=== PATIENT | female | born 1985 | race Caucasian/White ===

== ENCOUNTER 2017-04-02 20:22 | Inpatient (IN) | payer BC ==
[~2017-04-02] VITALS: Ht 167.6 cm; Wt 93.0 kg
[2017-04-02] MEDS: LACTATED RINGER'S 1000 ML INJ 1,000 ML IV SCH (20:46)
[2017-04-02] MEDS ORDERED: Prenatal Vitamin PO (20:57)
[2017-04-02] MEDS ORDERED: SODIUM CHLORIDE 0.9% FLUSH 10 ML FLUSH IV FLUSH PRN ×2 (21:45)
[2017-04-02] MEDS ORDERED: DINOPROSTONE 10 MG INSERT-LEAVE FOR 12 HOURS VAGINAL ONE (21:45)
[2017-04-02] MEDS ORDERED: NS 1000 ML OTHER PRN (21:45)
[2017-04-02] MEDS ORDERED: OXYTOCIN 30 UNITS 500ML PREMIX IV ONE (21:45)
[2017-04-02] MEDS ORDERED: LIDOCAINE HCL 1% 50 ML VIAL INFIL PRN (21:45)
[2017-04-02] MEDS ORDERED: ONDANSETRON HCL 4 MG/2 ML VIAL IV PUSH PRN (21:45)
[2017-04-02] MEDS ORDERED: NS 1000 ML IV PRN (21:45)
[2017-04-02] MEDS ORDERED: LIDOCAINE HCL 1% 50 ML VIAL I-DERMAL PRN (21:45)
[2017-04-02] MEDS ORDERED: MINERAL OIL 10 ML VIAL TOPICAL PRN (21:45)
[2017-04-02] MEDS ORDERED: LACTATED RINGER'S 1000 ML BOLUS IV PRN (21:45)
[2017-04-02] MEDS ORDERED: CITRIC ACID-SODIUM CITRATE LIQ 30 ML UDC PO SCH (21:45)
[2017-04-02] MEDS ORDERED: NS 500 ML BOLUS IV PRN (21:45)
[2017-04-02] MEDS ORDERED: ACETAMINOPHEN 325 MG TAB PO PRN (22:00)
[2017-04-02] MEDS ORDERED: PENICILLIN G POT 5,000,000 UNITS/NS 100 ML (Mini-Bag Plus) IV ONE ×2 (22:00)
[2017-04-02] MEDS ORDERED: ZOLPIDEM TARTRATE 5 MG TAB PO PRN (22:00)
[2017-04-02 22:02] LABS: AUTOMATED NEUTROPHIL # 9.3 TH/MM3 (1.8-7.7); BASOPHIL % 0.3 % (0.0-2.0); EOSINOPHIL % 0.3 % (0.0-4.0); HEMATOCRIT 34.2 % (35.0-46.0); HEMOGLOBIN 11.5 GM/DL (11.6-15.3); LYMPH % 15.4 % (9.0-44.0); LYMPHOCYTE # 1.8 TH/MM3 (1.0-4.8); MEAN CELL VOLUME 85.4 FL (80.0-100.0); MEAN CORPUSCULAR HEMOGLOBIN 28.7 PG (27.0-34.0); MEAN CORPUSCULAR HGB CONC 33.6 % (32.0-36.0); MEAN PLATELET VOLUME 8.3 FL (7.0-11.0); MONO % 6.6 % (0.0-8.0); MONOCYTE # 0.8 TH/MM3 (0-0.9); NEUT % 77.4 % (16.0-70.0); PLATELET COUNT 288 TH/MM3 (150-450); RED BLOOD COUNT 4.01 MIL/MM3 (4.00-5.30); RED CELL DISTRIBUTION WIDTH 13.5 % (11.6-17.2)
[2017-04-02 22:21] LABS: AMORPHOUS SEDIMENT, URINE RARE; BACTERIA, URINE FEW /hpf; BILIRUBIN, URINE NEG (NEG); BLOOD, URINE NEG (NEG); GLUCOSE,URINE NEG (NEG); KETONE, URINE 10 mg/dL (NEG); MUCUS URINE FEW /lpf (OCC); NITRITE,URINE NEG (NEG); PH, URINE 6.5 (5.0-8.5); SQUAMOUS EPITHELIAL CELL URINE 1 /hpf (0-5); URINE COLOR YELLOW (YELLW/STRAW); URINE LEUKOCYTE ESTERASE MOD (NEG)
[2017-04-03] VITALS (20 sets, daily range): BP systolic 108–147; BP diastolic 57–92; PULSE 81–103; RESP 17–18; TEMP 97.3–98.9
[2017-04-03] MEDS: PENICILLIN G POT 2,500,000 UNITS/NS 100 ML IV SCH ×4 (02:00→06:00)
--- NOTE | 2017-04-03 08:40 | HHI.HP ---
HPI Chief Complaint Induction of labor Date Seen: Apr 03, 2017 Time Seen: 08:30 Travel History International Travel<30 Days: No Contact w/Intl Traveler<30Days: No Known Affected Area: No History of Present Illness HPI 41 + SIUP, for IOL, GBS positive Weeks Gestation: 41 Para: 0 : 1 Last Menstrual Period: Jun 19, 2016 Miscarriage: 0 : 0 History Past Medical History Medical History: Denies Significant Hx Obstetric History Obstetric History GBS +. 1 hour glucola 123 Past Surgical History Surgical History: No Previous Surgery Family History Family History: Negative Social History Alcohol Use: No Tobacco Use: No Substance Abuse: No Allergies-Medications (Allergen,Severity, Reaction): Coded Allergies: No Known Allergies (Verified Allergy, Unknown, 04/02/17) Home Meds Reported Medications [ Vitamin] No Conflict Check, 1 TAB PO DAILY 04/02/17 Physical Exam Vital Signs Date Time Temp Pulse Resp B/P (MAP) Pulse Ox O2 Delivery O2 Flow Rate FiO2 04/03/17 07:12 98.2 18 04/03/17 07:05 88 118/76 (90) 04/03/17 04:13 97.7 88 17 132/83 (99) 04/03/17 00:05 98.0 18 04/03/17 00:04 94 133/76 (95) Narrative GENERAL: Well-nourished, well-developed patient. SKIN: Warm and dry. HEAD: Normocephalic and atraumatic. EYES: No scleral icterus. No injection or drainage. ENT: No nasal drainage noted. Mucous membranes pink. Airway patent. NECK: Supple, trachea midline. No JVD. CARDIOVASCULAR: Regular rate and rhythm without murmurs, gallops, or rubs. RESPIRATORY: Breath sounds equal bilaterally. No accessory muscle use. BREASTS: Bilateral exam showed no masses , no retractions, no nipple discharge. ABDOMEN/GI: Abdomen soft, non-tender, bowel sounds present, no rebound, no guarding Gravid to [-] weeks size Fundal Height: [-] GENITOURINARY: External Genitalia: intact and normal in appearance BUS glands: [-] Cervix: posterior Dilatation:1 Effacement: 50 Station: -3 Presentation: vtx Membranes: [intact Uterine Contractions: n/a FHT's: Category: 1 EXTREMITIES: No cyanosis or edema. BACK: Nontender without obvious deformity. No CVA tenderness. NEUROLOGICAL: Awake and alert. Motor and sensory grossly within normal limits. Five out of 5 muscle strength in all muscle groups. Normal speech. Caprini VTE Risk Assessment Caprini VTE Risk Assessment: No/Low Risk (score <= 1) Caprini Risk Assessment Model Point Value = 1 Point Value = 2 Point Value = 3 Point Value = 5 Age 41-60 Minor surgery BMI > 25 kg/m2 Swollen legs Varicose veins or History of unexplained or recurrent spontaneous Oral contraceptives or hormone replacement Sepsis (< 1 month) Serious lung disease, including pneumonia (< 1 month) Abnormal pulmonary function Acute myocardial infarction Congestive heart failure (< 1 month) History of inflammatory bowel disease Medical patient at bed rest Age 61-74 Arthroscopic surgery Major open surgery (> 45 min) Laparoscopic surgery (> 45 min) Malignancy Confined to bed (> 72 hours) Immobilizing plaster cast Central venous access Age >= 75 History of VTE Family history of VTE Factor V Leiden Prothrombin [id number] Lupus anticoagulant Anticardiolipin antibodies Elevated serum homocysteine Heparin-induced thrombocytopenia Other congenital or acquired thrombophilia Stroke (< 1 month) Elective arthroplasty Hip, pelvis, or leg fracture Acute spinal cord injury (< 1 month) Prophylaxis Regimen Total Risk Factor Score Risk Level Prophylaxis Regimen 0-1 Low Early ambulation 2 Moderate Order ONE of the following: *Sequential Compression Device (SCD) *Heparin 5000 units SQ BID 3-4 Higher Order ONE of the following medications: *Heparin 5000 units SQ TID *Enoxaparin/Lovenox 40 mg SQ daily (WT < 150 kg, CrCl > 30 mL/min) *Enoxaparin/Lovenox 30 mg SQ daily (WT < 150 kg, CrCl > 10-29 mL/min) *Enoxaparin/Lovenox 30 mg SQ BID (WT < 150 kg, CrCl > 30 mL/min) AND/OR *Sequential Compression Device (SCD) 5 or more Highest Order ONE of the following medications: *Heparin 5000 units SQ TID (Preferred with Epidurals) *Enoxaparin/Lovenox 40 mg SQ daily (WT < 150 kg, CrCl > 30 mL/min) *Enoxaparin/Lovenox 30 mg SQ daily (WT < 150 kg, CrCl > 10-29 mL/min) *Enoxaparin/Lovenox 30 mg SQ BID (WT < 150 kg, CrCl > 30 mL/min) AND *Sequential Compression Device (SCD) Data Data Vital Signs Reviewed: Yes Orders Orders Admit To Inpatient (04/02/17 ) Diet Liquid (04/03/17 Breakfast) Activity Oob Ad Delma (04/02/17 21:22) Activity Oob Ad Delma (04/02/17 21:22) ^ Labor Induction (04/02/17 21:22) ^ Vaginal Insert (04/02/17:) ^ Vaginal Lavage (04/02/17 21:22) Heart (04/02/17 21:22) Admit To Inpatient (04/02/17 ) Vital Signs (Adult) .Per protocol (04/02/17 21:24) Activity Oob Ad Delma (04/02/17 21:24) Heart (04/02/17 21:24) Amnioinfusion (04/02/17 21:24) Urinary Catheter Management .ONCE (04/02/17 21:24) Complete Blood Count With Diff (04/02/17 21:24) Hold Clot (04/02/17 21:24) Abo/Rh Blood Type (04/02/17 21:24) Urinalysis - C+S If Indicated (04/02/17 21:24) Drug Screen, Random Urine (04/02/17 21:24) Resp Oxygen Non Rebreathe Mask (04/02/17 ) ^ Epidural / Intrathecal Infus (04/02/17 21:24) Dinoprostone Vag Insert (Cervidil Vag In (04/02/17 21:45) Lactated Ringer's 1000 Ml Inj (Lr 1000 M (04/03/17 08:00) Sodium Chloride 0.9% Flush (Ns Flush) (04/02/17 21:45) Sodium Chloride 0.9% Flush (Ns Flush) (04/02/17 21:45) Sodium Chlor 0.9% 1000 Ml Inj (Ns 1000 M (04/02/17 21:45) Lactated Ringer's 1000 Ml Inj (Lr 1000 M (04/02/17 21:45) Sodium Chlorid 0.9% 500 Ml Inj (Ns 500 M (04/02/17 21:45) Sodium Chlor 0.9% 1000 Ml Inj (Ns 1000 M (04/02/17 21:45) Lidocaine 1% Inj (50 Ml) (Xylocaine 1% I (04/02/17 21:45) Citric Acid-Sodium Citrate Liq (Bicitra (04/02/17 21:45) Ondansetron Inj (Zofran Inj) (04/02/17 21:45) Fentanyl Inj (Fentanyl Inj) (04/02/17 21:45) Fentanyl Inj (Fentanyl Inj) (04/02/17 21:45) Penicillin G Potassium Inj (Pfizerpen-G (04/02/17 22:00) Penicillin G Potassium Inj (Pfizerpen-G (04/03/17 02:00) Oxytocin 30 Units-500ml Premix (Pitocin (04/02/17 21:45) Lidocaine 1% Inj (50 Ml) (Xylocaine 1% I (04/02/17 21:45) Light Mineral Oil (Muri-Lube Oil) (04/02/17 21:45) Acetaminophen (Tylenol) (04/02/17 22:00) Zolpidem (Ambien) (04/02/17 22:00) Labs Laboratory Tests Test 04/02/17 20:34 04/02/17 20:48 Urine Color YELLOW Urine Turbidity CLEAR Urine pH 6.5 Urine Specific [place] 1.018 Urine Protein TRACE Urine Glucose (UA) NEG Urine Ketones 10 Urine Occult Blood NEG Urine Nitrite NEG Urine Bilirubin NEG Urine Urobilinogen LESS THAN 2.0 Urine Leukocyte Esterase MOD Urine RBC 3 Urine WBC 1 Urine Squamous Epithelial Cells 1 Urine Amorphous Sediment RARE Urine Bacteria FEW Urine Mucus FEW Microscopic Urinalysis Comment CULT NOT INDICATED Urine Opiates Screen NEG Urine Barbiturates Screen NEG Urine Amphetamines Screen NEG Urine Benzodiazepines Screen NEG Urine Cocaine Screen NEG Urine Cannabinoids Screen NEG White Blood Count 12.0 Red Blood Count 4.01 Hemoglobin 11.5 Hematocrit 34.2 Mean Corpuscular Volume 85.4 Mean Corpuscular Hemoglobin 28.7 Mean Corpuscular Hemoglobin Concent 33.6 Red Cell Distribution Width 13.5 Platelet Count 288 Mean Platelet Volume 8.3 Neutrophils (%) (Auto) 77.4 Lymphocytes (%) (Auto) 15.4 Monocytes (%) (Auto) 6.6 Eosinophils (%) (Auto) 0.3 Basophils (%) (Auto) 0.3 Neutrophils # (Auto) 9.3 Lymphocytes # (Auto) 1.8 Monocytes # (Auto) 0.8 Eosinophils # (Auto) 0.0 Basophils # (Auto) 0.0 CBC Comment DIFF FINAL Differential Comment Assessment/Plan Assessment and Plan 41+ SIUP, postdates IOL, Cat. 1 FHT, GBS positive, discussed plan of management, will remove cervidil at 10am, then shower,eat ? cytotec OR pit. Patient is aware of possible serial induction. Kale Hanley MD Apr 03, 2017 08:40
[2017-04-03] MEDS ORDERED: OXYTOCIN 30 UNITS/NS 500ML PREMIX IV PRN (11:00)
--- NOTE | 2017-04-03 16:52 | HHI.PR ---
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
--- NOTE | 2017-04-03 17:12 | PD.LABORPN ---
Subjective Subjective Patient tolerated IV pitocin well, no significant cervical change Objective Vital Signs Vital Signs Date Time Temp Pulse Resp B/P (MAP) Pulse Ox O2 Delivery O2 Flow Rate FiO2 04/03/17 12:12 93 128/81 (97) 04/03/17 11:22 98.0 18 04/03/17 11:20 98 129/85 (100) Objective Pelvic Exam: Cervix: post. Dilatation: 1+ Effacement: 60 Station: -2 Presentation: vtx Membranes: [intact Uterine Contractions: mild FHT's: Category: 1 Decels: none Weeks Gestation: 41 Assessment/Plan Assessment and Plan 41 week ,IOL,reassuring FHT; discussed turning off pitocin, resting/eating dinner and use cytotec 25 mcg. Kale Hanley MD Apr 03, 2017 17:12
[2017-04-03] MEDS ORDERED: MISOPROSTOL 100 MCG TAB VAGINAL ONE (17:15)
[2017-04-03] MEDS ORDERED: PILL SPLITTER OTHER PRN (17:15)
[2017-04-03] MEDS: LACTATED RINGER'S 1000 ML INJ 1,000 ML IV SCH (18:31)
[2017-04-03] MEDS ORDERED: MISOPROSTOL 25 MCG TAB VAGINAL ONE ×2 (19:00→23:15)
[2017-04-04] VITALS (33 sets, daily range): BP systolic 115–140; BP diastolic 65–89; PULSE 72–98; RESP 16–18; TEMP 98.3–99.1; O2SAT 100
--- NOTE | 2017-04-04 08:25 | HHI.PR ---
RECORD PRODUCER Note Note S: Doing well, no complaints, denies headache, epigastric pain or right upper quadrant pain, contractions are mild. No loss of fluid O: Fetus: FHTs: 140s, moderate variability, accelerations present no decelerations Exam: 3/50/-2/medium/anterior A/P: 31 yo G1 at 41w2d for IOL based on GA 1. IUP: cat 1 tracing - cephalic, GBS neg, EFW 7.5lbs - post placenta 2. IOL: s/p cervidil x1, pit yesterday without change, held overnight, status post PV miso 2, most recent at 2300, cervix favorable Xiao score of 7 this morning, begin Pitocin, 3. Elevated blood pressure: Mostly normotensive, 1-2 mildly elevated blood pressures, will continue to monitor, will not collect HELLP labs at this time Austin Moreland MD Apr 04, 2017 08:25
[2017-04-04] MEDS ORDERED: OXYTOCIN 30 UNITS-500ML PREMIX 500 ML IV PRN (08:30)
[2017-04-04] MEDS: LACTATED RINGER'S 1000 ML INJ 1,000 ML IV SCH ×2 (09:56→20:16)
[2017-04-04] MEDS ORDERED: PENICILLIN G POT 5,000,000 UNITS/NS 100 ML(Mini-Bag Plus) IV ONE ×2 (11:00)
--- NOTE | 2017-04-04 13:03 | HHI.PR ---
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 IUP: cat 1 tracing - cephalic, GBS neg, EFW 7.5lbs - post placenta 2. IOL: s/p cervidil x1, pit yesterday without change, held overnight, status post PV miso 2, cervix favorable w/ BS of 7 this AM, continue pit, recheck this afternoon, pt desires to hold on AROM until then (around 4-5pm) 3. Elevated blood pressure: Mostly normotensive, 1-2 mildly elevated blood pressures, will continue to monitor, will not collect HELLP labs at this time Austin Moreland MD Apr 04, 2017 13:03
[2017-04-04] MEDS: PENICILLIN G POT 2,500,000 UNITS/NS 100 ML IV SCH ×6 (15:54→23:00)
--- NOTE | 2017-04-04 17:26 | HHI.PR ---
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 IUP: cat 1 tracing - cephalic, GBS neg, EFW 7.5lbs - post placenta 2. IOL: s/p cervidil x1, pit yesterday without change, held overnight, status post PV miso 2, cervix favorable w/ BS of 7 this AM, continue pit, s/p AROM this check (1645) clear fluid, discussed indications for failed induction of labor, allow 12-18 hours of Pitocin now status post rupture. 3. Elevated blood pressure: isolated and resolved, pt asymptomatic. Continue routine vitals. Austin Moreland MD Apr 04, 2017 17:26
[2017-04-04] MEDS ORDERED: fentaNYL 2MCG-BUPIV 0.125% INJ 100 ML ONE (22:24)
[2017-04-04] MEDS ORDERED: NO SYSTEM NARCOTICS PRN (23:00)
[2017-04-04] MEDS ORDERED: DO NOT ADMINISTER ANTICOAGULANTS PRN (23:00)
[2017-04-04] MEDS ORDERED: ePHEDrine/NS 25 MG/5 ML SYRINGE IV PUSH PRN (23:00)
[2017-04-04] MEDS ORDERED: fentaNYL 2MCG-BUPIV 0.125% 100 ML EPIDURAL SCH (23:00)
[2017-04-05] VITALS (39 sets, daily range): BP systolic 95–136; BP diastolic 50–81; PULSE 59–111; RESP 14–20; TEMP 97.5–100.6; O2SAT 96–100
[2017-04-05] MEDS: PENICILLIN G POT 2,500,000 UNITS/NS 100 ML IV SCH ×6 (03:56→11:00)
[2017-04-05] MEDS: LACTATED RINGER'S 1000 ML INJ 1,000 ML IV SCH ×3 (03:56→18:09)
--- NOTE | 2017-04-05 08:43 | PD.LABORPN ---
Subjective Subjective pt pushing since 6 am, on pitocin 20 mu Objective Vital Signs Vital Signs Date Time Temp Pulse Resp B/P (MAP) Pulse Ox O2 Delivery O2 Flow Rate FiO2 04/05/17 08:13 100.3 04/05/17 08:13 18 04/05/17 08:00 84 122/66 (84) 04/05/17 07:30 96 117/81 (93) 04/05/17 07:05 18 04/05/17 07:00 122/71 (88) 04/05/17 07:00 92 04/05/17 06:30 97 131/77 (95) 04/05/17 06:28 100.6 20 04/05/17 06:00 90 04/05/17 06:00 136/77 (96) 04/05/17 05:31 118/77 (91) 04/05/17 05:31 102 04/05/17 05:22 18 04/05/17 05:00 107 04/05/17 05:00 127/77 (94) 04/05/17 04:30 120/69 (86) 04/05/17 04:30 18 04/05/17 04:30 99.0 04/05/17 04:30 99.8 04/05/17 04:30 111 04/05/17 04:00 127/77 (94) 04/05/17 04:00 96 04/05/17 03:30 108/58 (75) 04/05/17 03:30 16 04/05/17 03:30 101 04/05/17 03:00 95/50 (65) 04/05/17 03:00 89 04/05/17 02:30 84 04/05/17 02:30 95/54 (68) 04/05/17 02:00 117/58 (77) 04/05/17 02:00 16 04/05/17 02:00 93 04/05/17 01:34 85 04/05/17 01:34 102/52 (69) 04/05/17 01:25 73 04/05/17 01:00 18 04/05/17 01:00 118/71 (87) 04/05/17 00:55 74 Objective Pelvic Exam: Cervix: [-] Dilatation: [-] 10 Effacement: [-] 100% Station: [-] -1 Presentation: [-] Membranes: [intact or ruptured] Uterine Contractions: [-] FHT's: Category: [-] 1 Baseline: [-] Reactive: [-] Variability: [-] Decels: [-] Weeks Gestation: 41 Gest Age Assessed Date: Apr 05, 2017 Gest Age Assessed Time: 08:42 Pt started active labor?: Yes Active labor start date: Apr 04, 2017 Active labor start time: 16:40 Medical induction of labor?: Yes Medical induction start date: Apr 03, 2017 Artificial rupture of membrane: Yes Artificial ROM date: Apr 04, 2017 Artifical ROM time: 16:40 Assessment/Plan Problem List: (1) 41 weeks gestation of ICD Codes: Z3A.41 - 41 weeks gestation of Assessment and Plan anticipate Gricel Swan MD Apr 05, 2017 08:43
[2017-04-05] MEDS ORDERED: CARBOPROST TROMETHAMINE 250 MCG/ML VIAL ONE (10:22)
[2017-04-05] MEDS ORDERED: MORPHINE SULFATE PF 5 MG/10 ML VIAL ONE (10:39)
[2017-04-05] MEDS ORDERED: MIDAZOLAM HCL 2 MG/2 ML VIAL ONE (10:39)
[2017-04-05] MEDS ORDERED: EPIDURAL-NALOXONE HCL 0.4 MG/ML AMP IV PUSH PRN (11:10)
[2017-04-05] MEDS ORDERED: EPIDURAL-NO SYSTEMIC NARCOTICS PRN (11:10)
[2017-04-05] MEDS ORDERED: EPIDURAL-DIPHENHYDRAMINE HCL 50 MG CAP PO PRN (11:10)
[2017-04-05] MEDS ORDERED: EPIDURAL-DIPHENHYDRAMINE HCL 50 MG/ML VIAL IV PUSH PRN (11:10)
[2017-04-05] MEDS ORDERED: EPIDURAL-DO NOT ADMINISTER ANTICOAGULANTS PRN (11:10)
[2017-04-05] MEDS ORDERED: ceFAZolin 2 GM PREMIX 50 ML IV SCH (11:30)
[2017-04-05] MEDS ORDERED: DEXAMETHASONE SOD PHOS 4 MG/ML VIAL IV ONE (12:00)
[2017-04-05] MEDS ORDERED: OXYTOCIN 10 UNIT/ML AMP IV ONE (12:00)
[2017-04-05] MEDS ORDERED: LIDOCAINE 2%/EPINEPHrine PF 1:200,000 20ML SDV OTHER ONE (12:00)
[2017-04-05] MEDS ORDERED: EPINEPHrine HCL (1:1000) 1 MG/ML VIAL IV ONE (12:00)
[2017-04-05] MEDS ORDERED: ONDANSETRON HCL 4 MG/2 ML VIAL IV ONE (12:00)
[2017-04-05] MEDS ORDERED: CITRIC ACID-SODIUM CITRATE LIQ 30 ML UDC PO SCH (12:00)
[2017-04-05] MEDS ORDERED: LACTATED RINGER'S 1000 ML INJ 1,000 ML IV ONE (12:00)
[2017-04-05] MEDS ORDERED: ceFAZolin INJ 1,000 MG VIAL IV ONE (12:00)
[2017-04-05] MEDS ORDERED: PROPOFOL 200 MG/20 ML AMP IV ONE (12:00)
[2017-04-05] MEDS ORDERED: oxyCODONE/ACETAMINOPHEN 5 MG/325 MG TAB PO PRN (12:15)
[2017-04-05] MEDS ORDERED: SODIUM CHLORIDE 0.9% FLUSH 10 ML FLUSH IV FLUSH PRN (12:15)
[2017-04-05] MEDS ORDERED: ONDANSETRON HCL 4 MG/2 ML VIAL IV PUSH PRN (12:15)
[2017-04-05] MEDS ORDERED: KETOROLAC TROMETHAMINE 60 MG/2 ML (IM) VIAL IM PRN (12:15)
[2017-04-05] MEDS ORDERED: OXYTOCIN 30 UNITS-500ML PREMIX 500 ML IV ONE (12:15)
[2017-04-05] MEDS ORDERED: ZOLPIDEM TARTRATE 5 MG TAB PO PRN (12:15)
[2017-04-05] MEDS ORDERED: SIMETHICONE 80 MG CHEWABLE TAB PO PRN (12:15)
[2017-04-05] MEDS ORDERED: OXYTOCIN 30 UNITS-500ML PREMIX 500 ML IV PRN (12:15)
[2017-04-05] MEDS ORDERED: OXYTOCIN 30 UNITS-500ML PREMIX 500 ML ONE (12:17)
[2017-04-05] MEDS ORDERED: KETOROLAC TROMETHAMINE 60 MG/2 ML (IM) VIAL IM ONE (12:17)
--- NOTE | 2017-04-05 13:37 | MP ---
cc: CHESTER ELIZABETH DATE OF SURGERY: 04/05/2017 PREOPERATIVE DIAGNOSIS Intrauterine at term, arrest of descent. POSTOPERATIVE DIAGNOSIS Intrauterine at term, arrest of descent. PROCEDURE Primary lower segment transverse section via Pfannenstiel skin incision. SURGEON Dr. Elizabeth. ANESTHESIA Epidural. ESTIMATED BLOOD LOSS 650 ccs. URINE OUTPUT Adequate. FINDINGS A live female was delivered vertex presentation. weight was 8 pounds 15 ounces. PROCEDURE The patient was taken to the operating room where epidural anesthesia was found to be adequate. She was then prepped and draped in the normal sterile fashion in the dorsal supine position with a leftward tilt. A Pfannenstiel skin incision was made with a scalpel and carried down to the underlying layer of fascia. The fascia was nicked in the midline and the incision was extended laterally with curved Cox scissors. Attention was turned to the inferior aspect of the incision which was grasped with Nelson clamps, elevated and the rectus muscles dissected off sharply. Attention was turned to the superior aspect of the incision which was grasped with Nelson clamps, elevated and the rectus muscles dissected off sharply. The rectus muscles were in the midline. The peritoneum was identified, grasped between two Janie clamps, elevated and entered sharply with Metzenbaum scissors. This incision was extended superiorly and inferiorly with good visualization of the bladder. The bladder blade was inserted. The vesicouterine peritoneum was identified, grasped with pickups, entered sharply with Metzenbaum scissors and was extended laterally and the bladder flap was created digitally. The lower uterine segment was incised in a transverse fashion with a scalpel. The incision was extended laterally with bandage scissors. The vertex was then delivered. The oropharynx and nasopharynx were bulb suctioned with a syringe. The shoulders were delivered atraumatically. Delayed cord clamping of 45-second was done. The cord was clamped x2 and cut. The infant was handed off to the awaiting nurse. Placenta was delivered manually. The uterus was cleared of all clots and debris. The uterine incision was repaired in two layers with 1-Vicryl. Hemostasis was assured. The gutters were cleared of all clots and debris. The fascia was closed in a running fashion with 0 Vicryl. The skin was closed with emilee. A pressure dressing was applied. The sponge, lap, needle and instrument counts were correct x3. The patient was transferred to the recovery room in stable condition. MD JACQUELIN Barrios/TLMoe /12:14 PM /1:22 PM
[2017-04-05] MEDS ORDERED: SODIUM CHLORIDE 0.9% FLUSH 10 ML FLUSH IV FLUSH SCH (21:00)
[2017-04-06 00:45] VITALS: BP 97/56; PULSE 81; RESP 16; TEMP 98.6; O2SAT 98
[2017-04-06 02:30] VITALS: RESP 16
[2017-04-06] MEDS: LACTATED RINGER'S 1000 ML INJ 1,000 ML IV SCH (03:01)
[2017-04-06 03:10] VITALS: RESP 16
[2017-04-06 06:00] VITALS: BP 103/52; PULSE 76; RESP 16; TEMP 98.6
[2017-04-06 06:20] LABS: AUTOMATED NEUTROPHIL # 10.5 TH/MM3 (1.8-7.7); BASOPHIL # 0.1 TH/MM3 (0-0.2); BASOPHIL % 0.4 % (0.0-2.0); EOSINOPHIL % 0.2 % (0.0-4.0); HEMATOCRIT 26.2 % (35.0-46.0); HEMOGLOBIN 8.8 GM/DL (11.6-15.3); LYMPH % 15.6 % (9.0-44.0); LYMPHOCYTE # 2.1 TH/MM3 (1.0-4.8); MEAN CELL VOLUME 85.8 FL (80.0-100.0); MEAN CORPUSCULAR HEMOGLOBIN 28.8 PG (27.0-34.0); MEAN CORPUSCULAR HGB CONC 33.5 % (32.0-36.0); MONO % 6.8 % (0.0-8.0); MONOCYTE # 0.9 TH/MM3 (0-0.9); PLATELET COUNT 200 TH/MM3 (150-450); RED BLOOD COUNT 3.06 MIL/MM3 (4.00-5.30); RED CELL DISTRIBUTION WIDTH 13.8 % (11.6-17.2); WHITE BLOOD COUNT 13.6 TH/MM3 (4.0-11.0)
[2017-04-06 08:00] VITALS: BP 95/52; PULSE 83; RESP 16; TEMP 98.2
[2017-04-06] MEDS: IBUPROFEN 600 MG TAB PO PRN ×2 (11:54→20:35)
[2017-04-06] MEDS: DOCUSATE SODIUM 50 MG/SENNA 8.6 MG TAB PO PRN (11:54)
--- NOTE | 2017-04-06 11:58 | HHI.OB ---
Subjective Post Operative Day: 2 Remarks Has not voided since molina out at 6 am eating regular diet pain managed nursing Objective Vitals/I&O Vital Signs Date Time Temp Pulse Resp B/P (MAP) Pulse Ox O2 Delivery O2 Flow Rate FiO2 04/06/17 08:00 98.2 83 16 95/52 (66) 04/06/17 06:00 98.6 76 16 103/52 (69) 04/06/17 03:10 16 04/06/17 02:30 16 04/06/17 00:45 98.6 81 16 97/56 (70) 98 04/05/17 23:00 16 04/05/17 21:19 18 04/05/17 19:30 59 16 113/59 (77) 97 04/05/17 19:30 97.5 04/05/17 18:20 17 04/05/17 17:35 16 04/05/17 16:20 17 04/05/17 14:40 16 04/05/17 13:05 98.4 04/05/17 13:05 78 16 111/62 (78) 04/05/17 12:41 99.2 04/05/17 12:29 80 16 103/60 (74) 98 04/05/17 12:06 14 96 04/05/17 12:05 73 98/53 (68) Result Diagram: 04/06/17 0527 Objective Remarks GENERAL: Well-nourished, well-developed patient. CARDIOVASCULAR: Regular rate and rhythm without murmurs, gallops, or rubs. RESPIRATORY: Breath sounds equal bilaterally. No accessory muscle use. ABDOMEN/GI: Abdomen soft, non-tender, bowel sounds present. Incision: Clean, dry and intact. Fundus: Firm, non-tender at umbilicus. GENITOURINARY: Light to moderate bleeding. EXTREMITIES: No cyanosis or edema, non-tender, without signs of DVT. Medications and IVs Current Medications Medications (Trade) Dose Ordered Sig/Natalia Route Start Time Stop Time Status Last Admin Lactated Ringer's 1,000 ml @ 100 mls/hr Q10H IV 04/05/17 17:01 04/06/17 13:00 04/06/17 03:01 Oxytocin 500 ml @ 100 mls/hr UNSCH X1 PRN IV 04/05/17 12:15 04/06/17 22:14 (NS Flush) 2 ml BID IV FLUSH 04/05/17 21:00 (NS Flush) 2 ml UNSCH PRN IV FLUSH 04/05/17 12:15 (Mylicon Chew) 80 mg QID PRN PO 04/05/17 12:15 (Tylenol) 650 mg Q6H PRN PO 04/05/17 12:15 (Motrin) 600 mg Q6H PRN PO 04/05/17 12:15 04/06/17 11:54 (Toradol Inj) 60 mg UNSCH X1 PRN IM 04/05/17 12:15 04/06/17 12:14 04/05/17 12:20 (Percocet 5-325 Mg) 1 tab Q4H PRN PO 04/05/17 12:15 (Percocet 5-325 Mg) 2 tab Q4H PRN PO 04/05/17 12:15 (Susan-Colace) 2 tab Q12H PRN PO 04/05/17 12:15 04/06/17 11:54 (Ambien) 5 mg HS PRN PO 04/05/17 12:15 (M-M-R Ii Inj) 0.5 ml ONCE ONCE SQ 04/06/17 16:00 04/06/17 16:01 (Boostrix Inj) 0.5 ml ONCE ONCE IM 04/06/17 16:00 04/06/17 16:01 (Zofran Inj) 4 mg Q6H PRN IV PUSH 04/05/17 12:15 04/05/17 19:52 Assessment/Plan Problem List: (1) 41 weeks gestation of ICD Codes: Z3A.41 - 41 weeks gestation of Assessment and Plan 41+ SIUP, postdates IOL, Cat. 1 FHT, GBS positive, discussed plan of management, will remove cervidil at 10am, then shower,eat ? cytotec OR pit. Patient is aware of possible serial induction. 04/06/17 noon POD 1 needs to void and then IV out post venifer for anemia anticipate discharge POD 2 or 3 Sarai Ramos MD Apr 06, 2017 11:58
[2017-04-06] MEDS ORDERED: MEASLES, MUMPS, RUBELLA VACCINE 0.5 ML VIAL SQ ONE (16:00)
[2017-04-06] MEDS ORDERED: DIPHTH/TETANUS/ACEL PERTUSSIS (BOOSTER) 0.5 ML VIAL/PFS IM ONE (16:00)
[2017-04-06 20:10] VITALS: BP 109/68; PULSE 75; RESP 16; TEMP 98.2
[2017-04-07] MEDS: DOCUSATE SODIUM 50 MG/SENNA 8.6 MG TAB PO PRN ×2 (00:06→14:47)
[2017-04-07] MEDS: IBUPROFEN 600 MG TAB PO PRN ×4 (02:45→20:14)
--- NOTE | 2017-04-07 07:58 | HHI.OB ---
Subjective Post Operative Day: 2 Remarks more fatigued than she expected and wants to stay until POD 3 never got venifer but doing well Objective Vitals/I&O Vital Signs Date Time Temp Pulse Resp B/P (MAP) Pulse Ox O2 Delivery O2 Flow Rate FiO2 04/06/17 20:10 98.2 75 16 109/68 (82) 04/06/17 08:00 98.2 83 16 95/52 (66) Result Diagram: 04/06/17 0527 Objective Remarks GENERAL: Well-nourished, well-developed patient. CARDIOVASCULAR: Regular rate and rhythm without murmurs, gallops, or rubs. RESPIRATORY: Breath sounds equal bilaterally. No accessory muscle use. ABDOMEN/GI: Abdomen soft, non-tender, bowel sounds present. Incision: Clean, dry and intact. Fundus: Firm, non-tender at umbilicus. GENITOURINARY: Light to moderate bleeding. EXTREMITIES: No cyanosis or edema, non-tender, without signs of DVT. Medications and IVs Current Medications Medications (Trade) Dose Ordered Sig/Natalia Route Start Time Stop Time Status Last Admin (NS Flush) 2 ml BID IV FLUSH 04/05/17 21:00 (NS Flush) 2 ml UNSCH PRN IV FLUSH 04/05/17 12:15 (Mylicon Chew) 80 mg QID PRN PO 04/05/17 12:15 (Tylenol) 650 mg Q6H PRN PO 04/05/17 12:15 (Motrin) 600 mg Q6H PRN PO 04/05/17 12:15 04/07/17 02:45 (Percocet 5-325 Mg) 1 tab Q4H PRN PO 04/05/17 12:15 (Percocet 5-325 Mg) 2 tab Q4H PRN PO 04/05/17 12:15 (Susan-Colace) 2 tab Q12H PRN PO 04/05/17 12:15 04/07/17 00:06 (Ambien) 5 mg HS PRN PO 04/05/17 12:15 (Zofran Inj) 4 mg Q6H PRN IV PUSH 04/05/17 12:15 04/05/17 19:52 Assessment/Plan Problem List: (1) 41 weeks gestation of ICD Codes: Z3A.41 - 41 weeks gestation of Assessment and Plan 41+ SIUP, postdates IOL, Cat. 1 FHT, GBS positive, discussed plan of management, will remove cervidil at 10am, then shower,eat ? cytotec OR pit. Patient is aware of possible serial induction. 04/06/17 noon POD 1 needs to void and then IV out post venifer for anemia anticipate discharge POD 2 or 3 04/07/17 0800 home in am remove help Sarai Gaines MD Apr 07, 2017 07:58
[2017-04-07] MEDS ORDERED: OXYC1TAB63 PO (07:59)
--- NOTE | 2017-04-07 07:59 | HHI.DCPOC ---
Discharge Care Plan Report Symptoms to Your Doctor -Temperature above 100.5 degrees -Redness, of incision or excessive or foul smelling drainage -Unusual pain or calf pain -Increased vaginal bleeding -Painful or difficulty urinating -Feelings of extreme sadness or anxiety after 2 weeks Goals to Promote Your Health * To prevent worsening of your condition and complications * To maintain your health at the optimal level Directions to Meet Your Goals Take your medications as prescribed Follow your dietary instruction Follow activity as directed Ensure plenty of rest for recovery Drink fluids for hydration Keep your appointments as scheduled Take your immunizations and boosters as scheduled If your symptoms worsen call your PCP, if no PCP go to Urgent Care Center or Emergency Room Smoking is Dangerous to Your Health. Avoid second hand smoke Call the 24-hour crisis hotline for domestic abuse at Sarai Ramos MD Apr 07, 2017 07:59
[2017-04-07 08:00] VITALS: BP 108/64; PULSE 73; RESP 15; TEMP 98.1; O2SAT 96
[2017-04-07] MEDS: ACETAMINOPHEN 325 MG TAB PO PRN ×2 (08:24→14:47)
[2017-04-07 20:00] VITALS: BP 135/79; PULSE 76; RESP 18; TEMP 98.2
[2017-04-07] MEDS: oxyCODONE/ACETAMINOPHEN 5 MG/325 MG TAB PO PRN (20:14)
[2017-04-08] MEDS: IBUPROFEN 600 MG TAB PO PRN ×3 (02:43→14:46)
[2017-04-08] MEDS: oxyCODONE/ACETAMINOPHEN 5 MG/325 MG TAB PO PRN ×3 (02:43→14:46)
[2017-04-08 08:00] VITALS: BP 124/81; PULSE 73; RESP 16; TEMP 98.1; O2SAT 97
[2017-04-08] MEDS: DOCUSATE SODIUM 50 MG/SENNA 8.6 MG TAB PO PRN (08:39)
== END 2017-04-08 15:57 | disposition home or self-care (01) | DRG 766 ==
LOC: H2EB 20:22 → H1EA 04-05 13:00
PROVIDERS: ADMIT Obstetrics & Gynecology; ATTEND Obstetrics & Gynecology
PROC: 3E0P7VZ Introduction of Hormone into Female Reproductive, Via Natural or Artificial Opening (ICD-10-PCS; principal; 2017-04-02)
PROC: 3E033VJ Introduction of Other Hormone into Peripheral Vein, Percutaneous Approach (ICD-10-PCS; 2017-04-03)
PROC: 10907ZC Drainage of Amniotic Fluid, Therapeutic from Products of Conception, Via Natural or Artificial Opening (ICD-10-PCS; 2017-04-04)
PROC: 10D00Z1 Extraction of Products of Conception, Low, Open Approach (ICD-10-PCS; 2017-04-05)
DX: O48.0 Post-term pregnancy (principal); D64.9 Anemia, unspecified; O99.02 Anemia complicating childbirth; O99.824 Streptococcus B carrier state complicating childbirth; Z37.0 Single live birth; Z3A.41 41 weeks gestation of pregnancy; O62.1 Secondary uterine inertia; R03.0 Elevated blood-pressure reading, without diagnosis of hypertension; R53.83 Other fatigue
CPT/HCPCS: 59025; 80307; 81001; 85025; 86900; 86901; J0171; J0690; J1100; J1885; J2250; J2274; J2405; J2540; J2590; J3010; J7120